=== PATIENT | female | born 1950 | race African-American/Black ===

== ENCOUNTER 2017-10-22 22:12 | Inpatient (IN) | payer MEDICARE, OTHER ==
[2017-10-22 22:40] LABS: URINE BLOOD (Dip) POC 3+ (NEGATIVE); URINE GLUCOSE (Dip) POC Negative (NEGATIVE); URINE KETONES (Dip) POC 1+ (NEGATIVE); URINE LEUKOCYTE EST (Dip) POC 3+ (NEGATIVE); URINE NITRITE (Dip) POC Positive (NEGATIVE); URINE TOTAL PROTEIN POC 3+ (NEGATIVE)
[2017-10-22 22:55] LABS: ADD MAN DIFF? NO
[2017-10-22 22:58] LABS: BASOPHILS % 0.2 % (0.0-2.0); EOSINOPHILS # 0.1 10^3/ul (0.0-0.5); EOSINOPHILS % 0.5 % (0.0-7.0); HEMATOCRIT 33.5 % (37.0-47.0); LYMPHOCYTES # 1.9 10^3/ul (0.8-2.9); LYMPHOCYTES % 15.4 % (15.0-51.0); MEAN CORPUSCULAR HGB CONC 32.8 g/dl (32.0-37.0); MEAN CORPUSCULAR VOLUME 88.4 fl (82.0-101.0); MEAN PLATELET VOLUME 11.6 fl (7.4-10.4); MONOCYTE # 0.8 10^3/ul (0.3-0.9); MONOCYTES % 6.4 % (0.0-11.0); NEUTROPHIL # 9.5 10^3/ul (1.6-7.5); PLATELET COUNT 233 10^3/UL (140-415); RED BLOOD COUNT 3.79 10^6/ul (4.20-5.40); RED CELL DISTRIBUTION WIDTH 14.7 % (11.5-14.5)
[2017-10-22 22:58] LABS: WHITE BLOOD COUNT 12.3 10^3/ul (4.8-10.8)
[2017-10-22 23:17] LABS: ADD UMIC YES; UR ASCORBIC ACID 40 mg/dL (NEGATIVE); UR BACTERIA FEW /HPF (NONE SEEN); UR BILIRUBIN (Dip) NEGATIVE (NEGATIVE); UR BLOOD (Dip) 3+ mg/dL (NEGATIVE); UR CALCIUM OXALATE CRYSTAL MANY /HPF (NONE SEEN); UR CLARITY CLOUDY (CLEAR); UR COLOR RED (YELLOW); UR GLUCOSE (Dip) NEGATIVE (NEGATIVE); UR KETONES (Dip) NEGATIVE (NEGATIVE); UR LEUKOCYTE ESTERASE (Dip) 2+ Leu/ul (NEGATIVE); UR MUCUS FEW /HPF (NONE SEEN); UR NITRITE (Dip) NEGATIVE (NEGATIVE); UR RBC > 182 /HPF (0-5); UR SPECIFIC GRAVITY (Dip) 1.015 (1.003-1.030); UR TOTAL PROTEIN (Dip) 2+ mg/dl (NEGATIVE); UR UROBILINOGEN (Dip) 1+ mg/dL (NEGATIVE); UR WBC 158 /HPF (0-5)
[2017-10-22 23:22] LABS: ALANINE AMINOTRANSFERASE 45 IU/L (13-69); ALBUMIN 2.5 g/dl (3.3-4.9); ALBUMIN/GLOBULIN RATIO 0.73; ALKALINE PHOSPHATASE 385 IU/L (42-121); ANION GAP 7 (8-16); ASPARTATE AMINO TRANSFERASE 41 IU/L (15-46); BLOOD UREA NITROGEN 9 mg/dl (7-20); CALCIUM 7.9 mg/dl (8.4-10.2); CARBON DIOXIDE 34 mmol/L (21-31); CHLORIDE 99 mmol/L (97-110); CREATININE 0.54 mg/dl (0.44-1.00); GLUCOSE 160 mg/dl (70-220); LIPASE 163 U/L (23-300); POTASSIUM 3.1 mmol/L (3.5-5.1); SODIUM 137 mmol/L (135-144); TOTAL PROTEIN 5.9 g/dl (6.1-8.1)
[2017-10-23] MEDS: morphine 4 MG/ML VIAL IV (00:24)
[2017-10-23] MEDS: ONDANSETRON 4 MG INJ IV (00:24)
[2017-10-23] MEDS: CEFTRIAXONE 1 GM/50 ML (PMX) 50 ML IVPB ×3 (00:24→20:47)
[2017-10-23] MEDS ORDERED: NACL 0.9% 3 ML SYG IV (02:30)
[2017-10-23] MEDS ORDERED: ACETAMINOPHEN 325 MG TAB PO (02:30)
[2017-10-23] MEDS ORDERED: ONDANSETRON 4 MG INJ IV (02:30)
[2017-10-23] MEDS ORDERED: ALBUTEROL/IPRATROPIUM (NEB) 3 ML AMP HHN (02:30)
[2017-10-23] MEDS: morphine 2 MG INJ IV ×4 (02:50→19:58)
[2017-10-23] MEDS ORDERED: DEXTROSE 50% 50 ML SYRINGE IV ×2 (03:30)
[2017-10-23] MEDS ORDERED: GLUCOSE GEL 15 GRAM TUBE BUCCAL (03:30)
[2017-10-23] MEDS ORDERED: GLUCOSE GEL 15 GRAM TUBE PO (03:30)
[2017-10-23] MEDS ORDERED: GLUCAGON 1 MG INJ IM (03:30)
[2017-10-23 03:58] LABS: ADD MAN DIFF? NO
[2017-10-23 04:08] LABS: BASOPHILS % 0.2 % (0.0-2.0); EOSINOPHILS # 0.1 10^3/ul (0.0-0.5); EOSINOPHILS % 0.5 % (0.0-7.0); HEMOGLOBIN 10.2 g/dl (12.0-16.0); LYMPHOCYTES # 1.8 10^3/ul (0.8-2.9); LYMPHOCYTES % 17.7 % (15.0-51.0); MEAN CORPUSCULAR HEMOGLOBIN 29.4 pg (29.0-33.0); MEAN CORPUSCULAR HGB CONC 32.9 g/dl (32.0-37.0); MEAN CORPUSCULAR VOLUME 89.3 fl (82.0-101.0); MEAN PLATELET VOLUME 11.3 fl (7.4-10.4); MONOCYTE # 0.8 10^3/ul (0.3-0.9); MONOCYTES % 7.9 % (0.0-11.0); NEUTROPHIL # 7.4 10^3/ul (1.6-7.5); NEUTROPHILS % 73.4 % (39.0-77.0); PLATELET COUNT 226 10^3/UL (140-415); RED BLOOD COUNT 3.47 10^6/ul (4.20-5.40); RED CELL DISTRIBUTION WIDTH 14.5 % (11.5-14.5)
[2017-10-23 04:08] LABS: WHITE BLOOD COUNT 10.1 10^3/ul (4.8-10.8)
[2017-10-23 04:12] LABS: HEMOGLOBIN A1C 13.2 % (0-5.9)
[2017-10-23 04:20] LABS: CREATINE KINASE 38 IU/L (23-200)
[2017-10-23 04:22] LABS: ALANINE AMINOTRANSFERASE 39 IU/L (13-69); ALBUMIN 2.2 g/dl (3.3-4.9); ALBUMIN/GLOBULIN RATIO 0.66; ALKALINE PHOSPHATASE 333 IU/L (42-121); ANION GAP 7 (8-16); ASPARTATE AMINO TRANSFERASE 35 IU/L (15-46); BLOOD UREA NITROGEN 9 mg/dl (7-20); CALCIUM 7.7 mg/dl (8.4-10.2); CARBON DIOXIDE 35 mmol/L (21-31); CHLORIDE 101 mmol/L (97-110); CHOL/HDL RATIO 2.2 RATIO; CHOLESTEROL 124 mg/dl (100-200); CREATININE 0.45 mg/dl (0.44-1.00); GLUCOSE 167 mg/dl (70-220); HDL CHOLESTEROL 56 mg/dl (33-92); LDL CHOLESTEROL,CALCULATED 49 mg/dl; MAGNESIUM 1.6 mg/dl (1.7-2.5); PHOSPHORUS 2.2 mg/dl (2.5-4.9); POTASSIUM 3.1 mmol/L (3.5-5.1); SODIUM 140 mmol/L (135-144); TOTAL PROTEIN 5.5 g/dl (6.1-8.1); TRIGLYCERIDES 96 mg/dl (0-149)
[2017-10-23 04:33] LABS: CK INDEX 2.4; CK-MB 0.92 ng/ml (0.0-2.4)
[2017-10-23 04:44] LABS: TROPONIN-I < 0.012 ng/ml (0.00-0.12)
[2017-10-23] MEDS: POTASSIUM CHLORIDE (SR) 10 MEQ TAB PO ×2 (07:00→12:11)
[2017-10-23] MEDS: MAGNESIUM SULFATE 2 GM/50 ML 50 ML IVPB (08:16)
[2017-10-23] MEDS: INSULIN ASPART [NOVOLOG] 3 ML PEN SC ×4 (08:18→22:00)
[2017-10-23] MEDS: THIAMINE 100 MG TAB PO (08:26)
[2017-10-23] MEDS: COLESEVELAM 625 MG TAB PO ×2 (08:26→23:58)
[2017-10-23] MEDS: HYDROCODONE/APAP (5/325) TAB PO (08:27)
[2017-10-23] MEDS: FUROSEMIDE 40 MG TAB PO (08:27)
[2017-10-23 12:29] LABS: CREATINE KINASE 40 IU/L (23-200)
[2017-10-23 12:42] LABS: CK INDEX 1.6; CK-MB 0.65 ng/ml (0.0-2.4)
[2017-10-23 12:43] LABS: TROPONIN-I < 0.012 ng/ml (0.00-0.12)
[2017-10-23] MEDS: BENAZEPRIL 40 MG TAB PO (14:11)
[2017-10-23] MEDS: AMLODIPINE 5 MG TAB PO (14:11)
[2017-10-23] MEDS: INSULIN GLARGINE [LANtus] 3 ML PEN SC (14:31)
[2017-10-24] MEDS: morphine 2 MG INJ IV ×4 (00:15→19:45)
[2017-10-24] MEDS: INSULIN ASPART [NOVOLOG] 3 ML PEN SC ×5 (02:19→21:14)
[2017-10-24 05:54] LABS: ADD MAN DIFF? NO
[2017-10-24 05:57] LABS: WHITE BLOOD COUNT 9.8 10^3/ul (4.8-10.8)
[2017-10-24 05:57] LABS: BASOPHIL # 0.1 10^3/ul (0.0-0.1); BASOPHILS % 0.5 % (0.0-2.0); EOSINOPHILS # 0.1 10^3/ul (0.0-0.5); EOSINOPHILS % 0.9 % (0.0-7.0); HEMATOCRIT 29.9 % (37.0-47.0); HEMOGLOBIN 9.7 g/dl (12.0-16.0); LYMPHOCYTES # 2.4 10^3/ul (0.8-2.9); LYMPHOCYTES % 24.4 % (15.0-51.0); MEAN CORPUSCULAR HGB CONC 32.4 g/dl (32.0-37.0); MEAN CORPUSCULAR VOLUME 89.3 fl (82.0-101.0); MEAN PLATELET VOLUME 11.3 fl (7.4-10.4); MONOCYTE # 0.8 10^3/ul (0.3-0.9); NEUTROPHIL # 6.5 10^3/ul (1.6-7.5); NEUTROPHILS % 65.7 % (39.0-77.0); PLATELET COUNT 232 10^3/UL (140-415); RED BLOOD COUNT 3.35 10^6/ul (4.20-5.40); RED CELL DISTRIBUTION WIDTH 14.9 % (11.5-14.5)
[2017-10-24 06:34] LABS: ANION GAP 6 (8-16); BLOOD UREA NITROGEN 11 mg/dl (7-20); CALCIUM 7.7 mg/dl (8.4-10.2); CARBON DIOXIDE 33 mmol/L (21-31); CHLORIDE 100 mmol/L (97-110); CREATININE 0.51 mg/dl (0.44-1.00); GLUCOSE 164 mg/dl (70-220); MAGNESIUM 1.8 mg/dl (1.7-2.5); PHOSPHORUS 2.3 mg/dl (2.5-4.9); POTASSIUM 3.8 mmol/L (3.5-5.1); SODIUM 135 mmol/L (135-144)
[2017-10-24] MEDS: INSULIN GLARGINE [LANtus] 3 ML PEN SC (08:12)
[2017-10-24] MEDS ORDERED: AMLODIPINE BENAZEPRIL PO (09:00)
[2017-10-24] MEDS: COLESEVELAM 625 MG TAB PO ×2 (09:10→21:06)
[2017-10-24] MEDS: CEFTRIAXONE 1 GM/50 ML (PMX) 50 ML IVPB ×2 (09:10→21:05)
[2017-10-24] MEDS: FUROSEMIDE 40 MG TAB PO (09:10)
[2017-10-24] MEDS: THIAMINE 100 MG TAB PO (09:11)
[2017-10-24] MEDS: AMLODIPINE 5 MG TAB PO (09:11)
[2017-10-24] MEDS: BENAZEPRIL 40 MG TAB PO (09:11)
[2017-10-24] MEDS: BARIUM SULF 2% 450 ML BTL (BERRY SMOOTHIE) PO (14:00)
[2017-10-24] MEDS: COLLAGENASE 30 GM TUBE TOP (21:06)
[2017-10-25] MEDS: morphine 2 MG INJ IV ×3 (01:04→21:36)
[2017-10-25 06:32] LABS: ADD MAN DIFF? NO
[2017-10-25 06:34] LABS: WHITE BLOOD COUNT 9.2 10^3/ul (4.8-10.8)
[2017-10-25 06:34] LABS: BASOPHIL # 0.1 10^3/ul (0.0-0.1); BASOPHILS % 0.6 % (0.0-2.0); EOSINOPHILS # 0.1 10^3/ul (0.0-0.5); EOSINOPHILS % 0.8 % (0.0-7.0); HEMATOCRIT 33.5 % (37.0-47.0); HEMOGLOBIN 10.7 g/dl (12.0-16.0); LYMPHOCYTES # 2.6 10^3/ul (0.8-2.9); MEAN CORPUSCULAR HEMOGLOBIN 29.1 pg (29.0-33.0); MEAN CORPUSCULAR HGB CONC 31.9 g/dl (32.0-37.0); MEAN PLATELET VOLUME 11.5 fl (7.4-10.4); MONOCYTE # 0.7 10^3/ul (0.3-0.9); MONOCYTES % 7.5 % (0.0-11.0); NEUTROPHIL # 5.8 10^3/ul (1.6-7.5); NEUTROPHILS % 62.6 % (39.0-77.0); PLATELET COUNT 264 10^3/UL (140-415); RED BLOOD COUNT 3.68 10^6/ul (4.20-5.40); RED CELL DISTRIBUTION WIDTH 14.9 % (11.5-14.5)
[2017-10-25 07:04] LABS: ANION GAP 5 (8-16); CARBON DIOXIDE 32 mmol/L (21-31); CHLORIDE 101 mmol/L (97-110); POTASSIUM 3.9 mmol/L (3.5-5.1); SODIUM 134 mmol/L (135-144)
[2017-10-25 07:05] LABS: BLOOD UREA NITROGEN 17 mg/dl (7-20); CREATININE 0.49 mg/dl (0.44-1.00); GLUCOSE 196 mg/dl (70-220)
[2017-10-25] MEDS: INSULIN GLARGINE [LANtus] 3 ML PEN SC (08:13)
[2017-10-25] MEDS: INSULIN ASPART [NOVOLOG] 3 ML PEN SC ×5 (08:14→21:00)
[2017-10-25] MEDS: CEFTRIAXONE 1 GM/50 ML (PMX) 50 ML IVPB (08:14)
[2017-10-25] MEDS: COLESEVELAM 625 MG TAB PO ×3 (08:15→21:00)
[2017-10-25] MEDS: THIAMINE 100 MG TAB PO (08:16)
[2017-10-25] MEDS: FUROSEMIDE 40 MG TAB PO (08:18)
[2017-10-25] MEDS: AMLODIPINE 10 MG TAB PO (08:18)
[2017-10-25] MEDS: BENAZEPRIL 40 MG TAB PO (08:18)
[2017-10-25] MEDS: COLLAGENASE 30 GM TUBE TOP (11:30)
[2017-10-25] MEDS: LEVOFLOXACIN 500 MG TAB PO (15:21)
[2017-10-26] MEDS: morphine 2 MG INJ IV ×4 (03:14→20:58)
[2017-10-26] MEDS: LEVOFLOXACIN 250 MG TAB PO (05:29)
[2017-10-26 06:42] LABS: ADD MAN DIFF? NO
[2017-10-26 06:52] LABS: WHITE BLOOD COUNT 9.6 10^3/ul (4.8-10.8)
[2017-10-26 06:52] LABS: BASOPHILS % 0.4 % (0.0-2.0); EOSINOPHILS % 0.4 % (0.0-7.0); HEMATOCRIT 30.8 % (37.0-47.0); LYMPHOCYTES # 2.1 10^3/ul (0.8-2.9); LYMPHOCYTES % 21.9 % (15.0-51.0); MEAN CORPUSCULAR HEMOGLOBIN 28.9 pg (29.0-33.0); MEAN CORPUSCULAR HGB CONC 32.5 g/dl (32.0-37.0); MEAN PLATELET VOLUME 11.7 fl (7.4-10.4); MONOCYTE # 0.7 10^3/ul (0.3-0.9); MONOCYTES % 6.8 % (0.0-11.0); NEUTROPHIL # 6.7 10^3/ul (1.6-7.5); NEUTROPHILS % 69.8 % (39.0-77.0); PLATELET COUNT 292 10^3/UL (140-415); RED BLOOD COUNT 3.46 10^6/ul (4.20-5.40); RED CELL DISTRIBUTION WIDTH 14.9 % (11.5-14.5)
[2017-10-26 07:25] LABS: ANION GAP 9 (8-16); BLOOD UREA NITROGEN 18 mg/dl (7-20); CALCIUM 7.9 mg/dl (8.4-10.2); CARBON DIOXIDE 30 mmol/L (21-31); CHLORIDE 101 mmol/L (97-110); CREATININE 0.49 mg/dl (0.44-1.00); GLUCOSE 315 mg/dl (70-220); POTASSIUM 4.2 mmol/L (3.5-5.1); SODIUM 136 mmol/L (135-144)
[2017-10-26] MEDS: INSULIN ASPART [NOVOLOG] 3 ML PEN SC ×7 (08:33→21:00)
[2017-10-26] MEDS: INSULIN GLARGINE [LANtus] 3 ML PEN SC (08:34)
[2017-10-26] MEDS: FUROSEMIDE 40 MG TAB PO (08:48)
[2017-10-26] MEDS: BENAZEPRIL 40 MG TAB PO (08:48)
[2017-10-26] MEDS: AMLODIPINE 10 MG TAB PO (08:49)
[2017-10-26] MEDS: THIAMINE 100 MG TAB PO (08:49)
[2017-10-26] MEDS: COLLAGENASE 30 GM TUBE TOP ×2 (08:50→16:23)
[2017-10-26] MEDS: COLESEVELAM 625 MG TAB PO ×2 (08:50→20:58)
[2017-10-27] MEDS: morphine 2 MG INJ IV ×4 (06:15→20:50)
[2017-10-27] MEDS: LEVOFLOXACIN 250 MG TAB PO (06:15)
[2017-10-27] MEDS: INSULIN ASPART [NOVOLOG] 3 ML PEN SC ×7 (08:15→20:56)
[2017-10-27] MEDS: INSULIN GLARGINE [LANtus] 3 ML PEN SC (08:16)
[2017-10-27] MEDS: BENAZEPRIL 40 MG TAB PO (08:20)
[2017-10-27] MEDS: AMLODIPINE 10 MG TAB PO (08:20)
[2017-10-27] MEDS: THIAMINE 100 MG TAB PO (08:21)
[2017-10-27] MEDS: COLLAGENASE 30 GM TUBE TOP (08:21)
[2017-10-27] MEDS: FUROSEMIDE 40 MG TAB PO (08:21)
[2017-10-27] MEDS: COLESEVELAM 625 MG TAB PO ×2 (08:21→20:51)
[2017-10-27] MEDS: HYDROCODONE/APAP (5/325) TAB PO (08:56)
[2017-10-27] MEDS ORDERED: ALUMINUM HYDROXIDE 30 ML CUP PO (17:00)
[2017-10-27] MEDS: ALUMINUM HYDROXIDE 30 ML CUP PO (17:20)
[2017-10-27] MEDS: HARD FAT/PHENYLEPHRINE SUPP PR (20:53)
[2017-10-28] MEDS: morphine 2 MG INJ IV (02:57)
[2017-10-28] MEDS: PANTOPRAZOLE (EC) 40 MG TAB PO (06:11)
[2017-10-28] MEDS: LEVOFLOXACIN 250 MG TAB PO (06:11)
[2017-10-28] MEDS: INSULIN GLARGINE [LANtus] 3 ML PEN SC (08:03)
[2017-10-28] MEDS: INSULIN ASPART [NOVOLOG] 3 ML PEN SC ×6 (08:05→21:00)
[2017-10-28] MEDS: THIAMINE 100 MG TAB PO (08:19)
[2017-10-28] MEDS: AMLODIPINE 10 MG TAB PO (08:19)
[2017-10-28] MEDS: BENAZEPRIL 40 MG TAB PO (08:19)
[2017-10-28] MEDS: COLESEVELAM 625 MG TAB PO ×2 (08:20→22:12)
[2017-10-28] MEDS: COLLAGENASE 30 GM TUBE TOP (08:20)
[2017-10-28] MEDS: FUROSEMIDE 40 MG TAB PO (08:20)
[2017-10-28] MEDS: LIDOCAINE 5% PATCH TD (12:42)
[2017-10-28] MEDS: VITAMIN A & D 5 GM OINT PACKET TOP ×2 (12:43→21:57)
[2017-10-28] MEDS: HYDROCODONE/APAP (5/325) TAB PO ×2 (13:09→21:48)
[2017-10-28] MEDS: BISACODYL (EC) 5 MG TAB PO (16:17)
[2017-10-28] MEDS: POLYETHYLENE GLYCOL 3350 119 GM POWDER PO ×2 (20:00→21:50)
[2017-10-28] MEDS: MAGNESIUM CITRATE 300 ML BTL PO (21:50)
[2017-10-28] MEDS: HARD FAT/PHENYLEPHRINE SUPP PR (22:00)
[2017-10-29] MEDS: PANTOPRAZOLE (EC) 40 MG TAB PO (05:29)
[2017-10-29] MEDS: LEVOFLOXACIN 250 MG TAB PO (05:29)
[2017-10-29] MEDS: HYDROCODONE/APAP (5/325) TAB PO ×2 (05:29→20:00)
[2017-10-29] MEDS: POLYETHYLENE GLYCOL 3350 119 GM POWDER PO (05:42)
[2017-10-29] MEDS: INSULIN ASPART [NOVOLOG] 3 ML PEN SC ×7 (09:25→21:00)
[2017-10-29] MEDS: INSULIN GLARGINE [LANtus] 3 ML PEN SC (09:26)
[2017-10-29] MEDS: morphine 2 MG INJ IV ×2 (09:27→15:01)
[2017-10-29] MEDS: AMLODIPINE 10 MG TAB PO (09:28)
[2017-10-29] MEDS: BISACODYL (EC) 5 MG TAB PO (09:28)
[2017-10-29] MEDS: THIAMINE 100 MG TAB PO (09:29)
[2017-10-29] MEDS: BENAZEPRIL 40 MG TAB PO (09:29)
[2017-10-29] MEDS: FUROSEMIDE 40 MG TAB PO (09:29)
[2017-10-29] MEDS: COLESEVELAM 625 MG TAB PO ×3 (09:30→20:14)
[2017-10-29] MEDS: VITAMIN A & D 5 GM OINT PACKET TOP ×2 (09:30→22:53)
[2017-10-29] MEDS: LIDOCAINE 5% PATCH TD (09:30)
[2017-10-29] MEDS: COLLAGENASE 30 GM TUBE TOP (09:31)
[2017-10-29] MEDS: AL HYDROX/MG HYDROX/SIMETH 30 ML CUP PO ×2 (16:27→23:01)
[2017-10-29] MEDS: hydrALAzine 20 MG INJ IV (20:01)
[2017-10-30] MEDS: PEG/ELECTROLYTES 4L BTL PO ×2 (00:17→05:37)
[2017-10-30] MEDS: HYDROCODONE/APAP (5/325) TAB PO ×3 (03:51→17:44)
[2017-10-30] MEDS: LEVOFLOXACIN 250 MG TAB PO (05:37)
[2017-10-30] MEDS: PANTOPRAZOLE (EC) 40 MG TAB PO (05:37)
[2017-10-30] MEDS: COLESEVELAM 625 MG TAB PO ×3 (08:38→21:26)
[2017-10-30] MEDS: VITAMIN A & D 5 GM OINT PACKET TOP ×2 (08:38→21:25)
[2017-10-30] MEDS: THIAMINE 100 MG TAB PO (08:38)
[2017-10-30] MEDS: AMLODIPINE 10 MG TAB PO (08:38)
[2017-10-30] MEDS: INSULIN ASPART [NOVOLOG] 3 ML PEN SC ×7 (08:39→21:00)
[2017-10-30] MEDS: FUROSEMIDE 40 MG TAB PO (08:41)
[2017-10-30] MEDS: BENAZEPRIL 40 MG TAB PO (08:41)
[2017-10-30] MEDS: LIDOCAINE 5% PATCH TD (08:43)
[2017-10-30] MEDS: COLLAGENASE 30 GM TUBE TOP ×2 (08:44→16:55)
[2017-10-30] MEDS: INSULIN GLARGINE [LANtus] 3 ML PEN SC (09:32)
[2017-10-31] MEDS: HYDROCODONE/APAP (5/325) TAB PO ×4 (00:07→22:55)
[2017-10-31] MEDS: LEVOFLOXACIN 250 MG TAB PO (06:23)
[2017-10-31] MEDS: PANTOPRAZOLE (EC) 40 MG TAB PO (06:23)
[2017-10-31] MEDS: INSULIN ASPART [NOVOLOG] 3 ML PEN SC ×7 (08:17→21:00)
[2017-10-31] MEDS: INSULIN GLARGINE [LANtus] 3 ML PEN SC (08:18)
[2017-10-31] MEDS: COLESEVELAM 625 MG TAB PO ×3 (09:00→21:00)
[2017-10-31] MEDS: FUROSEMIDE 40 MG TAB PO (09:50)
[2017-10-31] MEDS: BENAZEPRIL 40 MG TAB PO (09:50)
[2017-10-31] MEDS: AMLODIPINE 10 MG TAB PO (09:50)
[2017-10-31] MEDS: THIAMINE 100 MG TAB PO (09:50)
[2017-10-31] MEDS: VITAMIN A & D 5 GM OINT PACKET TOP ×2 (09:50→21:26)
[2017-10-31] MEDS: LIDOCAINE 5% PATCH TD (09:51)
[2017-10-31] MEDS: COLLAGENASE 30 GM TUBE TOP (09:52)
[2017-10-31 17:20] LABS: ADD UMIC YES; UR ASCORBIC ACID NEGATIVE (NEGATIVE); UR BILIRUBIN (Dip) NEGATIVE (NEGATIVE); UR BLOOD (Dip) 2+ mg/dL (NEGATIVE); UR BUDDING YEAST MANY /HPF (NONE SEEN); UR CLARITY TURBID (CLEAR); UR COLOR YELLOW (YELLOW); UR GLUCOSE (Dip) 1+ mg/dL (NEGATIVE); UR KETONES (Dip) NEGATIVE (NEGATIVE); UR LEUKOCYTE ESTERASE (Dip) 3+ Leu/ul (NEGATIVE); UR NITRITE (Dip) NEGATIVE (NEGATIVE); UR RBC 46 /HPF (0-5); UR TOTAL PROTEIN (Dip) 2+ mg/dl (NEGATIVE); UR UROBILINOGEN (Dip) NEGATIVE (NEGATIVE); UR WBC > 182 /HPF (0-5)
[2017-10-31] MEDS: BISACODYL (EC) 5 MG TAB PO (18:03)
[2017-10-31] MEDS: MAGNESIUM CITRATE 300 ML BTL PO (18:25)
[2017-10-31] MEDS: morphine 2 MG INJ IV (19:45)
[2017-10-31] MEDS: POLYETHYLENE GLYCOL 3350 119 GM POWDER PO (21:25)
[2017-11-01] MEDS: PANTOPRAZOLE (EC) 40 MG TAB PO (05:37)
[2017-11-01] MEDS: HYDROCODONE/APAP (5/325) TAB PO (05:38)
[2017-11-01 05:47] LABS: ADD MAN DIFF? NO
[2017-11-01 05:55] LABS: BASOPHILS % 0.2 % (0.0-2.0); EOSINOPHILS % 0.3 % (0.0-7.0); HEMATOCRIT 32.6 % (37.0-47.0); HEMOGLOBIN 10.5 g/dl (12.0-16.0); LYMPHOCYTES # 1.9 10^3/ul (0.8-2.9); LYMPHOCYTES % 14.2 % (15.0-51.0); MEAN CORPUSCULAR HEMOGLOBIN 29.2 pg (29.0-33.0); MEAN CORPUSCULAR HGB CONC 32.2 g/dl (32.0-37.0); MEAN CORPUSCULAR VOLUME 90.8 fl (82.0-101.0); MEAN PLATELET VOLUME 10.6 fl (7.4-10.4); MONOCYTE # 1.1 10^3/ul (0.3-0.9); MONOCYTES % 8.8 % (0.0-11.0); NEUTROPHIL # 9.9 10^3/ul (1.6-7.5); NEUTROPHILS % 75.8 % (39.0-77.0); PLATELET COUNT 366 10^3/UL (140-415); RED BLOOD COUNT 3.59 10^6/ul (4.20-5.40); RED CELL DISTRIBUTION WIDTH 14.6 % (11.5-14.5)
[2017-11-01 06:14] LABS: ANION GAP 7 (8-16); BLOOD UREA NITROGEN 23 mg/dl (7-20); CALCIUM 8.4 mg/dl (8.4-10.2); CARBON DIOXIDE 34 mmol/L (21-31); CHLORIDE 97 mmol/L (97-110); CREATININE 0.86 mg/dl (0.44-1.00); GLUCOSE 130 mg/dl (70-220); MAGNESIUM 2.2 mg/dl (1.7-2.5); PHOSPHORUS 3.4 mg/dl (2.5-4.9); POTASSIUM 3.3 mmol/L (3.5-5.1); SODIUM 135 mmol/L (135-144)
[2017-11-01] MEDS: INSULIN ASPART [NOVOLOG] 3 ML PEN SC ×7 (07:35→21:00)
[2017-11-01] MEDS: INSULIN GLARGINE [LANtus] 3 ML PEN SC ×2 (08:00→15:04)
[2017-11-01] MEDS: POLYETHYLENE GLYCOL 3350 119 GM POWDER PO (08:44)
[2017-11-01] MEDS: BISACODYL (EC) 5 MG TAB PO (08:45)
[2017-11-01] MEDS: LIDOCAINE 5% PATCH TD (08:53)
[2017-11-01] MEDS: COLESEVELAM 625 MG TAB PO ×2 (09:00→21:07)
[2017-11-01] MEDS: THIAMINE 100 MG TAB PO (09:56)
[2017-11-01] MEDS: BENAZEPRIL 40 MG TAB PO (09:56)
[2017-11-01] MEDS: AMLODIPINE 10 MG TAB PO (09:56)
[2017-11-01] MEDS: COLLAGENASE 30 GM TUBE TOP (09:57)
[2017-11-01] MEDS: VITAMIN A & D 5 GM OINT PACKET TOP ×2 (09:57→21:16)
[2017-11-01] MEDS: FUROSEMIDE 40 MG TAB PO (09:57)
[2017-11-01] MEDS ORDERED: POTASSIUM CHLORIDE 20 MEQ in DEXTROSE 5% 100 ML IVPB (11:00)
[2017-11-01] MEDS: POTASSIUM CHLORIDE 50 ML IVPB (12:31)
[2017-11-01] MEDS ORDERED: ONDANSETRON 4 MG INJ IV (17:00)
[2017-11-01] MEDS ORDERED: LABETALOL HCL 20MG INJ IV (17:00)
[2017-11-01] MEDS ORDERED: hydrALAzine 20 MG INJ IV (17:00)
[2017-11-01] MEDS ORDERED: HYDROmorphONE (0.2 MG/ML) 10ML SYG IV (17:00)
[2017-11-01] MEDS ORDERED: PROPOFOL 20 ML (17:13)
[2017-11-01] MEDS ORDERED: LIDOCAINE 2% (SDV) 5 ML INJ (17:13)
[2017-11-01] MEDS ORDERED: EPHEDrine SULFATE 50 MG/5 ML SYG (17:40)
[2017-11-01] MEDS: morphine 2 MG INJ IV (21:16)
[2017-11-02] MEDS: PANTOPRAZOLE (EC) 40 MG TAB PO (06:02)
[2017-11-02] MEDS: HYDROCODONE/APAP (5/325) TAB PO ×2 (06:03→13:23)
[2017-11-02] MEDS: INSULIN ASPART [NOVOLOG] 3 ML PEN SC ×7 (08:17→20:54)
[2017-11-02] MEDS: INSULIN GLARGINE [LANtus] 3 ML PEN SC (08:19)
[2017-11-02] MEDS: LOPERAMIDE 2 MG CAP PO ×2 (08:56→20:51)
[2017-11-02] MEDS: BENAZEPRIL 40 MG TAB PO (08:58)
[2017-11-02] MEDS: FUROSEMIDE 40 MG TAB PO (08:58)
[2017-11-02] MEDS: THIAMINE 100 MG TAB PO (08:59)
[2017-11-02] MEDS: AMLODIPINE 10 MG TAB PO (08:59)
[2017-11-02] MEDS: COLLAGENASE 30 GM TUBE TOP (09:00)
[2017-11-02] MEDS: VITAMIN A & D 5 GM OINT PACKET TOP ×2 (09:00→20:52)
[2017-11-02] MEDS: COLESEVELAM 625 MG TAB PO ×3 (09:00→21:00)
[2017-11-02] MEDS: LIDOCAINE 5% PATCH TD (09:02)
[2017-11-02] MEDS: FLUCONAZOLE 100 MG TAB PO (15:27)
[2017-11-03] MEDS: morphine 2 MG INJ IV (00:47)
[2017-11-03] MEDS: PANTOPRAZOLE (EC) 40 MG TAB PO (05:55)
[2017-11-03] MEDS: LOPERAMIDE 2 MG CAP PO ×2 (05:56→20:53)
[2017-11-03 06:10] LABS: ADD MAN DIFF? NO
[2017-11-03 06:25] LABS: WHITE BLOOD COUNT 10.1 10^3/ul (4.8-10.8)
[2017-11-03 06:25] LABS: BASOPHILS % 0.4 % (0.0-2.0); EOSINOPHILS # 0.1 10^3/ul (0.0-0.5); EOSINOPHILS % 1.2 % (0.0-7.0); HEMATOCRIT 29.8 % (37.0-47.0); HEMOGLOBIN 9.5 g/dl (12.0-16.0); LYMPHOCYTES # 2.6 10^3/ul (0.8-2.9); LYMPHOCYTES % 25.6 % (15.0-51.0); MEAN CORPUSCULAR HEMOGLOBIN 29.5 pg (29.0-33.0); MEAN CORPUSCULAR HGB CONC 31.9 g/dl (32.0-37.0); MEAN CORPUSCULAR VOLUME 92.5 fl (82.0-101.0); MEAN PLATELET VOLUME 11.1 fl (7.4-10.4); MONOCYTE # 0.8 10^3/ul (0.3-0.9); MONOCYTES % 7.6 % (0.0-11.0); NEUTROPHIL # 6.5 10^3/ul (1.6-7.5); NEUTROPHILS % 64.5 % (39.0-77.0); PLATELET COUNT 309 10^3/UL (140-415); RED BLOOD COUNT 3.22 10^6/ul (4.20-5.40); RED CELL DISTRIBUTION WIDTH 14.5 % (11.5-14.5)
[2017-11-03 06:50] LABS: ANION GAP 9 (8-16); BLOOD UREA NITROGEN 8 mg/dl (7-20); CARBON DIOXIDE 34 mmol/L (21-31); CHLORIDE 102 mmol/L (97-110); CREATININE 0.59 mg/dl (0.44-1.00); GLUCOSE 163 mg/dl (70-220); POTASSIUM 3.4 mmol/L (3.5-5.1); SODIUM 142 mmol/L (135-144)
[2017-11-03] MEDS: INSULIN ASPART [NOVOLOG] 3 ML PEN SC ×7 (08:00→20:53)
[2017-11-03] MEDS: INSULIN GLARGINE [LANtus] 3 ML PEN SC (08:13)
[2017-11-03] MEDS: LIDOCAINE 5% PATCH TD (08:14)
[2017-11-03] MEDS: VITAMIN A & D 5 GM OINT PACKET TOP ×2 (08:14→20:53)
[2017-11-03] MEDS: FUROSEMIDE 40 MG TAB PO (08:15)
[2017-11-03] MEDS: BENAZEPRIL 40 MG TAB PO (08:15)
[2017-11-03] MEDS: FLUCONAZOLE 100 MG TAB PO (08:15)
[2017-11-03] MEDS: COLESEVELAM 625 MG TAB PO ×2 (08:16→20:57)
[2017-11-03] MEDS: COLLAGENASE 30 GM TUBE TOP (08:16)
[2017-11-03] MEDS: THIAMINE 100 MG TAB PO (08:22)
[2017-11-03] MEDS: AMLODIPINE 10 MG TAB PO (08:22)
[2017-11-03] MEDS: HYDROCODONE/APAP (5/325) TAB PO ×3 (09:09→23:50)
[2017-11-03] MEDS: GLUCOSE GEL 15 GRAM TUBE PO ×2 (12:16→12:36)
[2017-11-03] MEDS: POTASSIUM CHLORIDE (SR) 20 MEQ TAB PO (15:03)
[2017-11-03] MEDS: RIFAXIMIN 200 MG TAB PO (20:53)
[2017-11-04] MEDS: PANTOPRAZOLE (EC) 40 MG TAB PO (06:27)
[2017-11-04] MEDS: HYDROCODONE/APAP (5/325) TAB PO ×2 (06:45→18:15)
[2017-11-04 06:46] LABS: ANION GAP 8 (8-16); BLOOD UREA NITROGEN 12 mg/dl (7-20); CALCIUM 7.5 mg/dl (8.4-10.2); CARBON DIOXIDE 33 mmol/L (21-31); CHLORIDE 99 mmol/L (97-110); CREATININE 0.56 mg/dl (0.44-1.00); GLUCOSE 182 mg/dl (70-220); POTASSIUM 3.4 mmol/L (3.5-5.1); SODIUM 137 mmol/L (135-144)
[2017-11-04] MEDS: INSULIN ASPART [NOVOLOG] 3 ML PEN SC ×7 (08:09→21:00)
[2017-11-04] MEDS: INSULIN GLARGINE [LANtus] 3 ML PEN SC (08:11)
[2017-11-04] MEDS: COLLAGENASE 30 GM TUBE TOP (09:00)
[2017-11-04] MEDS: COLESEVELAM 625 MG TAB PO ×2 (09:00→21:00)
[2017-11-04] MEDS: THIAMINE 100 MG TAB PO (09:16)
[2017-11-04] MEDS: RIFAXIMIN 200 MG TAB PO ×3 (09:16→21:48)
[2017-11-04] MEDS: FLUCONAZOLE 100 MG TAB PO (09:16)
[2017-11-04] MEDS: LIDOCAINE 5% PATCH TD (09:16)
[2017-11-04] MEDS: LOPERAMIDE 2 MG CAP PO ×2 (09:16→21:48)
[2017-11-04] MEDS: BENAZEPRIL 40 MG TAB PO (09:17)
[2017-11-04] MEDS: FUROSEMIDE 40 MG TAB PO (09:17)
[2017-11-04] MEDS: AMLODIPINE 10 MG TAB PO (09:17)
[2017-11-04] MEDS: VITAMIN A & D 5 GM OINT PACKET TOP ×2 (09:19→21:48)
[2017-11-04] MEDS: BARIUM SULFATE 135 ML (E-Z HD) PO (19:00)
[2017-11-05] MEDS: HYDROCODONE/APAP (5/325) TAB PO ×3 (03:37→21:24)
[2017-11-05 06:09] LABS: ADD MAN DIFF? NO
[2017-11-05 06:19] LABS: BASOPHIL # 0.1 10^3/ul (0.0-0.1); BASOPHILS % 0.8 % (0.0-2.0); EOSINOPHILS # 0.2 10^3/ul (0.0-0.5); EOSINOPHILS % 2.2 % (0.0-7.0); HEMATOCRIT 29.4 % (37.0-47.0); HEMOGLOBIN 9.6 g/dl (12.0-16.0); LYMPHOCYTES # 2.3 10^3/ul (0.8-2.9); LYMPHOCYTES % 30.8 % (15.0-51.0); MEAN CORPUSCULAR HEMOGLOBIN 29.4 pg (29.0-33.0); MEAN CORPUSCULAR HGB CONC 32.7 g/dl (32.0-37.0); MEAN CORPUSCULAR VOLUME 90.2 fl (82.0-101.0); MEAN PLATELET VOLUME 11.2 fl (7.4-10.4); MONOCYTE # 0.7 10^3/ul (0.3-0.9); MONOCYTES % 9.6 % (0.0-11.0); NEUTROPHIL # 4.2 10^3/ul (1.6-7.5); NEUTROPHILS % 55.8 % (39.0-77.0); PLATELET COUNT 295 10^3/UL (140-415); RED BLOOD COUNT 3.26 10^6/ul (4.20-5.40); RED CELL DISTRIBUTION WIDTH 14.2 % (11.5-14.5)
[2017-11-05 06:19] LABS: WHITE BLOOD COUNT 7.4 10^3/ul (4.8-10.8)
[2017-11-05 06:54] LABS: ALANINE AMINOTRANSFERASE 47 IU/L (13-69); ALBUMIN 2.4 g/dl (3.3-4.9); ALKALINE PHOSPHATASE 369 IU/L (42-121); ANION GAP 6 (8-16); ASPARTATE AMINO TRANSFERASE 66 IU/L (15-46); BLOOD UREA NITROGEN 18 mg/dl (7-20); CALCIUM 7.9 mg/dl (8.4-10.2); CARBON DIOXIDE 36 mmol/L (21-31); CHLORIDE 99 mmol/L (97-110); GLUCOSE 215 mg/dl (70-220); MAGNESIUM 1.7 mg/dl (1.7-2.5); PHOSPHORUS 2.9 mg/dl (2.5-4.9); POTASSIUM 3.4 mmol/L (3.5-5.1); SODIUM 138 mmol/L (135-144); TOTAL PROTEIN 5.8 g/dl (6.1-8.1)
[2017-11-05] MEDS: INSULIN ASPART [NOVOLOG] 3 ML PEN SC ×7 (08:03→21:00)
[2017-11-05] MEDS: INSULIN GLARGINE [LANtus] 3 ML PEN SC (08:04)
[2017-11-05] MEDS: FLUCONAZOLE 100 MG TAB PO (08:26)
[2017-11-05] MEDS: BENAZEPRIL 40 MG TAB PO (08:26)
[2017-11-05] MEDS: COLESEVELAM 625 MG TAB PO ×2 (08:26→21:00)
[2017-11-05] MEDS: AMLODIPINE 10 MG TAB PO (08:27)
[2017-11-05] MEDS: THIAMINE 100 MG TAB PO (08:27)
[2017-11-05] MEDS: RIFAXIMIN 200 MG TAB PO ×3 (08:27→21:12)
[2017-11-05] MEDS: LOPERAMIDE 2 MG CAP PO ×2 (08:27→21:12)
[2017-11-05] MEDS: FUROSEMIDE 40 MG TAB PO (08:28)
[2017-11-05] MEDS: VITAMIN A & D 5 GM OINT PACKET TOP ×2 (08:28→21:13)
[2017-11-05] MEDS: LIDOCAINE 5% PATCH TD (08:28)
[2017-11-05] MEDS: COLLAGENASE 30 GM TUBE TOP (08:29)
[2017-11-05] MEDS ORDERED: POTASSIUM CHLORIDE (SR) 20 MEQ TAB PO (17:40)
[2017-11-05] MEDS: POTASSIUM CHLORIDE 20 MEQ POWDER FOR ORAL SOLN PO (17:43)
[2017-11-06] MEDS: HARD FAT/PHENYLEPHRINE SUPP PR (02:32)
[2017-11-06] MEDS: HYDROCODONE/APAP (5/325) TAB PO ×2 (03:43→15:07)
[2017-11-06 06:18] LABS: ADD MAN DIFF? NO
[2017-11-06 06:42] LABS: BASOPHIL # 0.1 10^3/ul (0.0-0.1); BASOPHILS % 0.7 % (0.0-2.0); EOSINOPHILS # 0.1 10^3/ul (0.0-0.5); EOSINOPHILS % 1.3 % (0.0-7.0); HEMATOCRIT 28.5 % (37.0-47.0); HEMOGLOBIN 9.5 g/dl (12.0-16.0); LYMPHOCYTES # 2.4 10^3/ul (0.8-2.9); LYMPHOCYTES % 28.8 % (15.0-51.0); MEAN CORPUSCULAR HGB CONC 33.3 g/dl (32.0-37.0); MEAN CORPUSCULAR VOLUME 89.9 fl (82.0-101.0); MEAN PLATELET VOLUME 10.8 fl (7.4-10.4); MONOCYTE # 0.8 10^3/ul (0.3-0.9); MONOCYTES % 9.2 % (0.0-11.0); NEUTROPHILS % 58.5 % (39.0-77.0); PLATELET COUNT 298 10^3/UL (140-415); RED BLOOD COUNT 3.17 10^6/ul (4.20-5.40); RED CELL DISTRIBUTION WIDTH 14.5 % (11.5-14.5)
[2017-11-06 06:42] LABS: WHITE BLOOD COUNT 8.5 10^3/ul (4.8-10.8)
[2017-11-06 07:05] LABS: ALANINE AMINOTRANSFERASE 65 IU/L (13-69); ALBUMIN 2.4 g/dl (3.3-4.9); ALBUMIN/GLOBULIN RATIO 0.66; ALKALINE PHOSPHATASE 565 IU/L (42-121); ANION GAP 7 (8-16); ASPARTATE AMINO TRANSFERASE 116 IU/L (15-46); BLOOD UREA NITROGEN 25 mg/dl (7-20); CARBON DIOXIDE 33 mmol/L (21-31); CHLORIDE 101 mmol/L (97-110); CREATININE 0.63 mg/dl (0.44-1.00); GLUCOSE 228 mg/dl (70-220); MAGNESIUM 1.8 mg/dl (1.7-2.5); PHOSPHORUS 3.1 mg/dl (2.5-4.9); POTASSIUM 4.1 mmol/L (3.5-5.1); SODIUM 137 mmol/L (135-144)
[2017-11-06] MEDS: INSULIN GLARGINE [LANtus] 3 ML PEN SC (08:41)
[2017-11-06] MEDS: INSULIN ASPART [NOVOLOG] 3 ML PEN SC ×7 (08:41→22:32)
[2017-11-06] MEDS: POTASSIUM CHLORIDE 20 MEQ POWDER FOR ORAL SOLN PO (08:47)
[2017-11-06] MEDS: LIDOCAINE 5% PATCH TD (08:47)
[2017-11-06] MEDS: THIAMINE 100 MG TAB PO (08:48)
[2017-11-06] MEDS: BENAZEPRIL 40 MG TAB PO (08:48)
[2017-11-06] MEDS: AMLODIPINE 10 MG TAB PO (08:48)
[2017-11-06] MEDS: FLUCONAZOLE 100 MG TAB PO (08:48)
[2017-11-06] MEDS: RIFAXIMIN 200 MG TAB PO (08:49)
[2017-11-06] MEDS: LOPERAMIDE 2 MG CAP PO (08:49)
[2017-11-06] MEDS: VITAMIN A & D 5 GM OINT PACKET TOP ×2 (09:00→22:33)
[2017-11-06] MEDS: COLESEVELAM 625 MG TAB PO ×2 (09:00→21:00)
[2017-11-06] MEDS: COLLAGENASE 30 GM TUBE TOP (09:00)
[2017-11-06] MEDS: morphine 2 MG INJ IV (22:33)
[2017-11-07] MEDS: morphine 2 MG INJ IV (06:39)
[2017-11-07] MEDS: INSULIN ASPART [NOVOLOG] 3 ML PEN SC ×6 (08:17→21:00)
[2017-11-07] MEDS: INSULIN GLARGINE [LANtus] 3 ML PEN SC (08:19)
[2017-11-07] MEDS: LIDOCAINE 5% PATCH TD (08:53)
[2017-11-07] MEDS: VITAMIN A & D 5 GM OINT PACKET TOP ×2 (08:53→21:08)
[2017-11-07] MEDS: AMLODIPINE 10 MG TAB PO (08:54)
[2017-11-07] MEDS: THIAMINE 100 MG TAB PO (08:54)
[2017-11-07] MEDS: POTASSIUM CHLORIDE 20 MEQ POWDER FOR ORAL SOLN PO (08:54)
[2017-11-07] MEDS: COLESEVELAM 625 MG TAB PO ×2 (08:56→21:00)
[2017-11-07] MEDS: BENAZEPRIL 40 MG TAB PO (08:56)
[2017-11-07] MEDS: FLUCONAZOLE 100 MG TAB PO (08:56)
[2017-11-07] MEDS: COLLAGENASE 30 GM TUBE TOP (08:57)
[2017-11-07] MEDS ORDERED: LOPERAMIDE 2 MG CAP PO (09:00)
[2017-11-07] MEDS: HYDROCODONE/APAP (5/325) TAB PO (13:18)
[2017-11-08] MEDS ORDERED: INSULIN GLARGINE [LANtus] 3 ML PEN SC (08:00)
== END 2017-11-07 21:54 | DRG 690 ==
LOC: E/R 22:12 → PP2 10-23 01:20
PROC: 0DBB8ZX Excision of Ileum, Via Natural or Artificial Opening Endoscopic, Diagnostic (ICD-10-PCS; principal; 2017-11-01 17:00)
PROC: 0DBF8ZX Excision of Right Large Intestine, Via Natural or Artificial Opening Endoscopic, Diagnostic (ICD-10-PCS; 2017-11-01 17:00)
PROC: 0DBG8ZX Excision of Left Large Intestine, Via Natural or Artificial Opening Endoscopic, Diagnostic (ICD-10-PCS; 2017-11-01 17:00)
DX: N39.0 Urinary tract infection, site not specified (principal); L89.323 Pressure ulcer of left buttock, stage 3; L89.322 Pressure ulcer of left buttock, stage 2; S32.10XA Unspecified fracture of sacrum, initial encounter for closed fracture; E11.65 Type 2 diabetes mellitus with hyperglycemia; E44.1 Mild protein-calorie malnutrition; E88.09 Other disorders of plasma-protein metabolism, not elsewhere classified; Z68.1 Body mass index [BMI] 19.9 or less, adult; B37.41 Candidal cystitis and urethritis; I10 Essential (primary) hypertension; F17.200 Nicotine dependence, unspecified, uncomplicated; R31.9 Hematuria, unspecified; K64.9 Unspecified hemorrhoids; R33.9 Retention of urine, unspecified; K64.8 Other hemorrhoids; W19.XXXA Unspecified fall, initial encounter; K52.89 Other specified noninfective gastroenteritis and colitis; B95.2 Enterococcus as the cause of diseases classified elsewhere; Z16.21 Resistance to vancomycin; Q78.8 Other specified osteochondrodysplasias; M81.0 Age-related osteoporosis without current pathological fracture; M25.551 Pain in right hip; B96.1 Klebsiella pneumoniae [K. pneumoniae] as the cause of diseases classified elsewhere; B96.89 Other specified bacterial agents as the cause of diseases classified elsewhere; N20.0 Calculus of kidney
CPT/HCPCS: 36415; 71045; 72170; 72192; 74176; 74250; 76536; 80048; 80053; 80061; 81001; 81003; 82306; 82550; 82553; 82962; 83036; 83690; 83735; 84100; 84443; 84484; 85025; 86850; 86900; 86901; 86920; 87045; 87075; 87081; 87086; 87177; 88305; 93306; 96365; 96375; 97110; 97116; 97162; 97530; 99285-25; G0378